=== PATIENT | male | born 1940 | race Caucasian/White ===

== ENCOUNTER 2018-04-14 21:25 | Observation (INO) | payer MEDICARE, OTHER ==
[2018-04-15 00:24] LABS: ADD MAN DIFF? NO
[2018-04-15] MEDS: ASPIRIN 81 MG TAB PO (00:24)
[2018-04-15 00:29] LABS: BASOPHILS % 0.4 % (0.0-2.0); EOSINOPHILS # 0.1 10^3/ul (0.0-0.5); EOSINOPHILS % 1.6 % (0.0-7.0); HEMATOCRIT 34.9 % (42.0-52.0); HEMOGLOBIN 11.4 g/dl (14.0-18.0); LYMPHOCYTES % 42.5 % (15.0-51.0); MEAN CORPUSCULAR HEMOGLOBIN 28.6 pg (29.0-33.0); MEAN CORPUSCULAR HGB CONC 32.7 g/dl (32.0-37.0); MEAN CORPUSCULAR VOLUME 87.5 fl (82.0-101.0); MEAN PLATELET VOLUME 9.7 fl (7.4-10.4); MONOCYTE # 0.8 10^3/ul (0.3-0.9); MONOCYTES % 11.1 % (0.0-11.0); NEUTROPHIL # 3.1 10^3/ul (1.6-7.5); NEUTROPHILS % 43.7 % (39.0-77.0); PLATELET COUNT 249 10^3/UL (140-415); RED BLOOD COUNT 3.99 10^6/ul (4.70-6.10); RED CELL DISTRIBUTION WIDTH 13.5 % (11.5-14.5)
[2018-04-15 00:54] LABS: ANION GAP 12 (5-13); BLOOD UREA NITROGEN 47 mg/dl (7-20); CARBON DIOXIDE 23 mmol/L (21-31); CHLORIDE 102 mmol/L (97-110); CREATININE 1.55 mg/dl (0.61-1.24); GLUCOSE 206 mg/dl (70-220); POTASSIUM 4.7 mmol/L (3.5-5.1); SODIUM 137 mmol/L (135-144)
[2018-04-15 01:05] LABS: B-TYPE NATRIURETIC PEPTIDE 1520 PG/ML (0-450); TROPONIN-I 0.034 ng/ml (0.000-0.120)
[2018-04-15] MEDS ORDERED: ONDANSETRON 4 MG INJ IV ×2 (01:30→04:30)
[2018-04-15] MEDS: FUROSEMIDE 20 MG INJ IV (01:30)
[2018-04-15] MEDS ORDERED: ACETAMINOPHEN 325 MG TAB PO ×2 (01:30→04:30)
[2018-04-15] MEDS ORDERED: MECLIZINE 25 MG TAB PO (04:30)
[2018-04-15] MEDS ORDERED: NACL 0.9% 3 ML SYG IV (04:30)
[2018-04-15] MEDS ORDERED: HYDROCODONE/APAP (5/325) TAB PO (04:30)
[2018-04-15] MEDS ORDERED: NITROGLYCERIN (SL) 0.4 MG TAB SL (04:30)
[2018-04-15] MEDS ORDERED: ALBUTEROL/IPRATROPIUM (NEB) 3 ML AMP HHN (04:30)
[2018-04-15 06:08] LABS: ADD MAN DIFF? NO
[2018-04-15 06:15] LABS: BASOPHILS % 0.5 % (0.0-2.0); EOSINOPHILS # 0.1 10^3/ul (0.0-0.5); EOSINOPHILS % 1.8 % (0.0-7.0); HEMATOCRIT 34.2 % (42.0-52.0); HEMOGLOBIN 11.2 g/dl (14.0-18.0); LYMPHOCYTES # 2.6 10^3/ul (0.8-2.9); LYMPHOCYTES % 42.6 % (15.0-51.0); MEAN CORPUSCULAR HEMOGLOBIN 28.8 pg (29.0-33.0); MEAN CORPUSCULAR HGB CONC 32.7 g/dl (32.0-37.0); MEAN CORPUSCULAR VOLUME 87.9 fl (82.0-101.0); MEAN PLATELET VOLUME 9.5 fl (7.4-10.4); MONOCYTE # 0.8 10^3/ul (0.3-0.9); MONOCYTES % 12.1 % (0.0-11.0); NEUTROPHIL # 2.6 10^3/ul (1.6-7.5); NEUTROPHILS % 42.2 % (39.0-77.0); PLATELET COUNT 230 10^3/UL (140-415); RED BLOOD COUNT 3.89 10^6/ul (4.70-6.10); RED CELL DISTRIBUTION WIDTH 13.7 % (11.5-14.5)
[2018-04-15 06:15] LABS: WHITE BLOOD COUNT 6.2 10^3/ul (4.8-10.8)
[2018-04-15 06:42] LABS: ALANINE AMINOTRANSFERASE 12 IU/L (13-69); ALBUMIN 3.3 g/dl (3.3-4.9); ALBUMIN/GLOBULIN RATIO 0.91; ALKALINE PHOSPHATASE 85 IU/L (42-121); ANION GAP 12 (5-13); ASPARTATE AMINO TRANSFERASE 21 IU/L (15-46); BLOOD UREA NITROGEN 45 mg/dl (7-20); CALCIUM 9.6 mg/dl (8.4-10.2); CARBON DIOXIDE 23 mmol/L (21-31); CHLORIDE 102 mmol/L (97-110); CHOL/HDL RATIO 6.8 RATIO; CHOLESTEROL 137 mg/dl (100-200); CREATININE 1.45 mg/dl (0.61-1.24); GLUCOSE 287 mg/dl (70-220); HDL CHOLESTEROL 20 mg/dl (31-75); LDL CHOLESTEROL,CALCULATED 43 mg/dl; POTASSIUM 4.4 mmol/L (3.5-5.1); SODIUM 137 mmol/L (135-144); TOTAL PROTEIN 6.9 g/dl (6.1-8.1); TRIGLYCERIDES 370 mg/dl (0-149)
[2018-04-15 06:43] LABS: CREATINE KINASE 31 IU/L (23-200)
[2018-04-15 06:49] LABS: CK INDEX 1.7; CK-MB 0.53 ng/ml (0.0-2.4); TROPONIN-I 0.026 ng/ml (0.000-0.120)
[2018-04-15] MEDS: FUROSEMIDE 40 MG TAB PO ×2 (06:54→17:17)
[2018-04-15] MEDS: LEVOTHYROXINE 25 MCG TAB PO (06:54)
[2018-04-15] MEDS: PANTOPRAZOLE (EC) 40 MG TAB PO (06:54)
[2018-04-15] MEDS: ALBUTEROL HFA 8 GM INHALER INH ×5 (06:58→21:00)
[2018-04-15 08:04] LABS: HEMOGLOBIN A1C 13.2 % (0-5.9)
[2018-04-15] MEDS ORDERED: HEPARIN 5,000 UNIT/0.5 ML VIAL (08:06)
[2018-04-15] MEDS: HEPARIN SODIUM 5,000 UNIT/ML VIAL SC (08:16)
[2018-04-15] MEDS: FLUTICASONE 0.05% 16 GM NAS SPRAY NASAL ×2 (08:18→21:03)
[2018-04-15] MEDS: FENOFIBRATE 145 MG TAB PO (08:19)
[2018-04-15] MEDS: CLOPIDOGREL 75 MG TAB PO (08:19)
[2018-04-15] MEDS: ASPIRIN (EC) 81 MG TAB PO (08:20)
[2018-04-15] MEDS: CHOLECALCIFEROL 1,000 UNIT TAB PO (08:21)
[2018-04-15] MEDS: SOTALOL 80 MG TAB PO (08:21)
[2018-04-15] MEDS: DULOXETINE 30 MG CAP DR PO (08:22)
[2018-04-15] MEDS: AMLODIPINE 5 MG TAB PO ×2 (08:22→21:02)
[2018-04-15] MEDS: FERROUS SULFATE (EC) 325 MG TAB PO ×3 (08:22→21:02)
[2018-04-15] MEDS: ALLOPURINOL 100 MG TAB PO ×2 (08:22→21:02)
[2018-04-15] MEDS ORDERED: NON-FORMULARY/PATIENT OWN MED (Esomeprazole Mag Trihydrate (Nexium) 40 MG) PO (09:00)
[2018-04-15] MEDS ORDERED: NON-FORMULARY/PATIENT OWN MED (Clopidogrel Bisulfate* 75 MG) PO (09:00)
[2018-04-15 12:37] LABS: CREATINE KINASE 31 IU/L (23-200)
[2018-04-15 12:49] LABS: CK INDEX 1.7; CK-MB 0.53 ng/ml (0.0-2.4); TROPONIN-I < 0.012 ng/ml (0.000-0.120)
[2018-04-15] MEDS: LINAGLIPTIN 5 MG TABLET PO (13:35)
[2018-04-15] MEDS: OXYMETAZOLINE 0.05% 15 ML NAS SPRAY NASAL ×2 (16:47→21:04)
[2018-04-15] MEDS: ENOXAPARIN 100 MG/ML SYG SC (16:51)
[2018-04-15] MEDS: METHYLPREDNISOLONE 4 MG TAB PO (17:18)
[2018-04-15] MEDS ORDERED: NON-FORMULARY/PATIENT OWN MED (Rosuvastatin Calcium* (Crestor*) 10 MG) PO (21:00)
[2018-04-15] MEDS: TAMSULOSIN (SR) 0.4 MG CAP PO (21:01)
[2018-04-15] MEDS: ATORVASTATIN 40 MG TAB PO (21:01)
[2018-04-15] MEDS: MONTELUKAST 10 MG TAB PO (21:02)
[2018-04-16] MEDS: ALBUTEROL HFA 8 GM INHALER INH ×3 (01:42→08:26)
[2018-04-16] MEDS: PANTOPRAZOLE (EC) 40 MG TAB PO (05:59)
[2018-04-16] MEDS: LEVOTHYROXINE 25 MCG TAB PO (06:01)
[2018-04-16] MEDS: FUROSEMIDE 40 MG TAB PO ×2 (06:01→17:49)
[2018-04-16 07:33] LABS: ADD MAN DIFF? NO
[2018-04-16] MEDS: METHYLPREDNISOLONE 4 MG TAB PO ×3 (07:35→17:49)
[2018-04-16 07:44] LABS: BASOPHILS % 0.3 % (0.0-2.0); HEMOGLOBIN 12.9 g/dl (14.0-18.0); LYMPHOCYTES # 1.4 10^3/ul (0.8-2.9); LYMPHOCYTES % 19.9 % (15.0-51.0); MEAN CORPUSCULAR HEMOGLOBIN 28.4 pg (29.0-33.0); MEAN CORPUSCULAR HGB CONC 33.1 g/dl (32.0-37.0); MEAN CORPUSCULAR VOLUME 85.7 fl (82.0-101.0); MONOCYTE # 0.3 10^3/ul (0.3-0.9); MONOCYTES % 4.3 % (0.0-11.0); NEUTROPHIL # 5.4 10^3/ul (1.6-7.5); NEUTROPHILS % 74.9 % (39.0-77.0); PLATELET COUNT 282 10^3/UL (140-415); RED BLOOD COUNT 4.55 10^6/ul (4.70-6.10); RED CELL DISTRIBUTION WIDTH 13.4 % (11.5-14.5)
[2018-04-16 07:44] LABS: WHITE BLOOD COUNT 7.1 10^3/ul (4.8-10.8)
[2018-04-16 07:55] LABS: ALANINE AMINOTRANSFERASE 12 IU/L (13-69); ALBUMIN 3.7 g/dl (3.3-4.9); ALKALINE PHOSPHATASE 71 IU/L (42-121); ANION GAP 17 (5-13); ASPARTATE AMINO TRANSFERASE 21 IU/L (15-46); BILIRUBIN,INDIRECT 0.1 mg/dl (0-1.1); BILIRUBIN,TOTAL 0.1 mg/dl (0.2-1.3); BLOOD UREA NITROGEN 47 mg/dl (7-20); CARBON DIOXIDE 24 mmol/L (21-31); CHLORIDE 95 mmol/L (97-110); CREATININE 1.58 mg/dl (0.61-1.24); MAGNESIUM 2.2 mg/dl (1.7-2.5); PHOSPHORUS 5.9 mg/dl (2.5-4.9); POTASSIUM 4.7 mmol/L (3.5-5.1); SODIUM 136 mmol/L (135-144); TOTAL PROTEIN 7.9 g/dl (6.1-8.1)
[2018-04-16 08:02] LABS: GLUCOSE 466 mg/dl (70-220)
[2018-04-16 08:06] LABS: TROPONIN-I 0.026 ng/ml (0.000-0.120)
[2018-04-16] MEDS: AMLODIPINE 5 MG TAB PO (08:24)
[2018-04-16] MEDS: FENOFIBRATE 145 MG TAB PO (08:24)
[2018-04-16] MEDS: SOTALOL 80 MG TAB PO (08:24)
[2018-04-16] MEDS: FERROUS SULFATE (EC) 325 MG TAB PO ×2 (08:24→13:05)
[2018-04-16] MEDS: ASPIRIN (EC) 81 MG TAB PO (08:24)
[2018-04-16] MEDS: LINAGLIPTIN 5 MG TABLET PO (08:24)
[2018-04-16] MEDS: OXYMETAZOLINE 0.05% 15 ML NAS SPRAY NASAL (08:25)
[2018-04-16] MEDS: CHOLECALCIFEROL 1,000 UNIT TAB PO (08:25)
[2018-04-16] MEDS: FLUTICASONE 0.05% 16 GM NAS SPRAY NASAL (08:25)
[2018-04-16] MEDS: DULOXETINE 30 MG CAP DR PO (08:25)
[2018-04-16] MEDS: ALLOPURINOL 100 MG TAB PO (08:25)
[2018-04-16] MEDS: CLOPIDOGREL 75 MG TAB PO (08:25)
[2018-04-16] MEDS ORDERED: METHYLPREDNISOLONE 125 MG INJ IV (09:00)
[2018-04-16] MEDS ORDERED: METHYLPREDNISOLONE (MEDROL) DOSE PACK PO (09:00)
[2018-04-16] MEDS: INSULIN GLARGINE [LANTus] (100 UNITS/ML) SYG SC (10:54)
[2018-04-16] MEDS: ENOXAPARIN 100 MG/ML SYG SC (13:06)
[2018-04-16] MEDS: PSEUDOEPHEDRINE 30 MG TAB PO (17:49)
[2018-04-16] MEDS ORDERED: METHYLPREDNISOLONE 4 MG TAB PO (21:00)
[2018-04-17] MEDS ORDERED: METHYLPREDNISOLONE 4 MG TAB PO (21:00)
== END 2018-04-16 18:30 | disposition home or self-care (01) ==
LOC: E/R 21:25 → TEL 04-15 01:18
PROVIDERS: Internal Medicine
DX: R06.09 Other forms of dyspnea (principal); R07.9 Chest pain, unspecified; I13.0 Hypertensive heart and chronic kidney disease with heart failure and stage 1 through stage 4 chronic kidney disease, or unspecified chronic kidney disease; E11.22 Type 2 diabetes mellitus with diabetic chronic kidney disease; N18.3 Chronic kidney disease, stage 3 (moderate); I50.31 Acute diastolic (congestive) heart failure; I25.10 Atherosclerotic heart disease of native coronary artery without angina pectoris; E11.65 Type 2 diabetes mellitus with hyperglycemia; E78.5 Hyperlipidemia, unspecified; D50.9 Iron deficiency anemia, unspecified; I35.0 Nonrheumatic aortic (valve) stenosis; I48.2 Chronic atrial fibrillation; E03.9 Hypothyroidism, unspecified; N40.0 Benign prostatic hyperplasia without lower urinary tract symptoms; E66.9 Obesity, unspecified; Z68.32 Body mass index [BMI] 32.0-32.9, adult; Z86.73 Personal history of transient ischemic attack (TIA), and cerebral infarction without residual deficits; Z95.0 Presence of cardiac pacemaker; Z79.82 Long term (current) use of aspirin
CPT/HCPCS: 36415; 71045; 80048; 80053; 80061; 80076; 82550; 82553; 82962; 83036; 83735; 83880; 84100; 84443; 84484; 85025; 93005; 99285-25; G0378